=== PATIENT | female | born 1945 | race Caucasian/White ===

== ENCOUNTER 2020-06-05 15:16 | Inpatient (IN) | payer MEDICARE, OTHER ==
[~2020-06-05] VITALS: Ht 167.6 cm; Wt 69.9 kg
[2020-06-05 15:00] VITALS: BP 133/58
[2020-06-05] MEDS ORDERED: BENA20TA9 PO (15:41)
[2020-06-05] MEDS ORDERED: SERT100T PO (15:41)
[2020-06-05] MEDS ORDERED: ZOLP5TAB2 PO (15:41)
[2020-06-05] MEDS ORDERED: ALPR0.5T8 PO (15:41)
[2020-06-05] MEDS ORDERED: ONDA-104 PO (15:41)
[2020-06-05] MEDS ORDERED: OXYC-133 PO (15:41)
[2020-06-05] MEDS ORDERED: SIMV-49 PO (15:41)
--- NOTE | 2020-06-05 16:30 | NUR ---
Patient is medically cleared by Dr Villanueva for admission to [facility]. Patient is now waiting for admitting papers from ER registartion staff Rosa.
[2020-06-05] MEDS ORDERED: ONDANSETRON HCL 4 MG TABLET PO PRN (16:45)
[2020-06-05] MEDS ORDERED: ALPRAZOLAM 0.5 MG TABLET PO PRN (16:45)
[2020-06-05] MEDS ORDERED: OLANZAPINE 10 MG VIAL IM ONE (17:15)
--- NOTE | 2020-06-05 17:25 | NUR ---
Received patient from Ed via wheelchair. Introduced unit and admission process. Patient asked for phone to call boyfriend. Patient stated she wanted to talk to the boyfriend and wanted to see him. Patient called boyfriend and became agitated when they stopped talking. patient stated wanting to be transferred to [facility] and wanted to know why she was transferred here to the hospital and "is being isolated." Staff explained that she is not being isolated and that she is on a 5150 hold. patient started raising voice and started kicking nursing station door. When asked about the medicaitons she has, she started yelling and cursing. Staff tried advisement and orient patient to unit and process. Patient refused and not cooperative. Patient became verbally abusive to staff and used racial slur. Called Dr. Shah for orders. Dr. Shah ordered Zyprexa 10mg IM one time dose. Order carried out. Patient tolerated well. Will continue to monitor.
[2020-06-05] MEDS ORDERED: LORAZEPAM 0.5 MG TABLET PO PRN (17:45)
[2020-06-05] MEDS ORDERED: ZOLPIDEM 5 MG TABLET PO PRN (17:45)
[2020-06-05] MEDS ORDERED: ACETAMINOPHEN 325 MG TABLET PO PRN (17:45)
[2020-06-05] MEDS ORDERED: BLOOD SUGAR DIAGNOSTIC 1 EACH STRIP VI ONE (17:45)
[2020-06-05] MEDS ORDERED: SIMVASTATIN 40 MG TABLET PO SCH (18:00)
[2020-06-05 20:14] VITALS: BP 160/58
[2020-06-05] MEDS: OXYCODONE/APAP 5-325 MG TABLET PO PRN (23:32)
--- NOTE | 2020-06-06 05:06 | NUR ---
RECEIVED PATIENT IN BED, ALERT ORIENTED, COMPLAIN OF GEN BODY PAIN, MEDICATED FOR PAIN ORDER. PATIENT HAS EPISODE OF AGITATION, DEMANDING HER EYE DROP, AND WANTING HER EYE DROP AT BED SIDE. EXPLAINED TO PATIENT THAT NO MEDICATION ALLOWED AT BEDSIDE, BUT CONTINUE TO INSIST AND GETS AGITATED, WILL CONT TO MONITOR.
[2020-06-06 07:19] LABS: BILIRUBIN,TOTAL 0.4 mg/dL (0.2-1.0); CREATININE 1.3 mg/dL (0.6-1.3); POTASSIUM 4.2 mmol/L (3.5-5.1); TOTAL PROTEIN, SERUM 6.6 g/dL (6.4-8.2)
[2020-06-06 07:30] VITALS: BP 99/37
[2020-06-06] MEDS ORDERED: BENAZEPRIL HCL 20 MG TABLET PO SCH (09:00)
[2020-06-06] MEDS: BENAZEPRIL HCL 10 MG TABLET PO SCH (09:00)
--- NOTE | 2020-06-06 09:00 | NUR ---
Alert, oriented x 4. Participated with PT. Complained of right hip pain. MD aware with order for x ray. Calm and compliant with taking medications
[2020-06-06] MEDS ORDERED: LORAZEPAM 0.5 MG TABLET PO PRN (09:30)
[2020-06-06] MEDS: GABAPENTIN 100 MG CAPSULE PO SCH ×3 (09:46→16:49)
--- NOTE | 2020-06-06 10:13 | NUR ---
SW Initial Discharge Plan: Patient currently resides with roommate Randa Soriano, [place] [address] ([phone]). Patient would want to return back home upon discharge. Patient stated her significant other is involved in care ([phone]). This SW contacted patient's significant other Maldonado ([phone]) to discuss treatment plan and discharge plan, however, he was unavailable. This SW will work with the MD, family, and treatment team to help coordinate discharge plan.
--- NOTE | 2020-06-06 10:13 | NUR ---
SW Family Contact: This SW contacted patient's significant other Maldonado ([phone]) to discuss treatment plan and discharge plan, however, he was unavailable.
--- NOTE | 2020-06-06 10:14 | NUR ---
Firearms Report: Burglar Alarm Operator completed and submitted a [employer] firearms report for 5150 grave disability certification. A copy of report has been placed in patient chart.
--- NOTE | 2020-06-06 10:15 | NUR ---
SW Substance Abuse Intervention: Patient was provided with a brief substance abuse intervention and referred to [facility] ([phone]), [facility] ([phone]), and [facility] ([phone]). 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
[2020-06-06] MEDS: POLYVINYL ALCOHOL OPHT DROPS 15 ML BOTTLE EACHEYE PRN (12:41)
--- NOTE | 2020-06-06 13:00 | NUR ---
Participated with activities. With fair appetite. Report of dry eyes, MD aware with eye drops applied as ordered.
--- NOTE | 2020-06-06 14:38 | NUR ---
SW Family Contact: This SW spoke with patient's boyfriend Maldonado ([phone]) and he stated he is concerned about patient's eye situation. This SW stated that she will transfer this concern to her nurse. This SW notified patient's RN Arabella who stated she is aware of this condition and will be giving patient her eye drops. This SW discussed treatment plan and discharge plan with boyfriend Maldonado.
--- NOTE | 2020-06-06 14:39 | NUR ---
SW Friend Contact: This SW spoke with patient's roommate Randa ([phone]) who stated that patient would have to be stable in order to return back home.
--- NOTE | 2020-06-06 15:18 | NUR ---
Individual Therapy: diversified crops farmworker met with patient for brief counseling and assessed for level of suicidality. diversified crops farmworker assessed for suicidal thoughts, patient denied suicidal thoughts. Patient expressed "I did not mean to kill myself". She reported "I have done this in the past to get my boyfriends attention". She stated that she "feels better". Patient appears to be minimizing her symptoms. Patient was not understanding of her current situation. SW actively listened and provided education.
[2020-06-06 16:00] VITALS: BP 131/67
[2020-06-06] MEDS: DIVALPROEX 250 MG TABLET.DR PO SCH (16:49)
[2020-06-06] MEDS: SIMVASTATIN 40 MG TABLET PO SCH (20:28)
[2020-06-06] MEDS: SERTRALINE HCL 100 MG TABLET PO SCH (20:28)
[2020-06-06] MEDS: OXYCODONE/APAP 5-325 MG TABLET PO PRN (20:28)
[2020-06-06 20:32] VITALS: BP 144/69
[2020-06-07] MEDS: LORAZEPAM 1 MG TABLET PO PRN (00:15)
--- NOTE | 2020-06-07 05:46 | NUR ---
Patient received in her room. Awake and alert. Hyperverbal and tangential speech noted. Patient medication compliant, calm and cooperative. Quill Buncher And Sorter was able to engage in meaningful conversation and patient adamantly denies thoughts of SI. and minimized the events that brought her to the hospital. Total sleep hours were 5.45. Patient was up and down during the night. No acute distress or pain. Continuing to monitor patient for safety and behavioral escalation.
[2020-06-07] MEDS: POLYVINYL ALCOHOL OPHT DROPS 15 ML BOTTLE EACHEYE PRN ×2 (06:28→20:17)
[2020-06-07 07:30] VITALS: BP 140/57
[2020-06-07] MEDS: BENAZEPRIL HCL 10 MG TABLET PO SCH (08:46)
[2020-06-07] MEDS: GABAPENTIN 100 MG CAPSULE PO SCH ×3 (08:46→16:15)
[2020-06-07] MEDS: DIVALPROEX 250 MG TABLET.DR PO SCH ×2 (08:46→16:15)
[2020-06-07 16:00] VITALS: BP 110/47
--- NOTE | 2020-06-07 17:56 | NUR ---
Received patient in her room, awake and alert, patient is cooperative upon assessment , all due meds give per MD order, denies thoughts of SI. All needs met promptly. No s/sx of distress. Denies of any pain.
[2020-06-07 19:53] VITALS: BP 111/45
[2020-06-07] MEDS: SIMVASTATIN 40 MG TABLET PO SCH (20:17)
[2020-06-07] MEDS: OXYCODONE/APAP 5-325 MG TABLET PO PRN (20:18)
[2020-06-07] MEDS: SERTRALINE HCL 100 MG TABLET PO SCH (20:19)
--- NOTE | 2020-06-08 06:07 | NUR ---
Patient slept 7.15 hours last night. No issues. Continuing with plan of care.
[2020-06-08 07:30] VITALS: BP 123/74
--- NOTE | 2020-06-08 07:30 | NUR ---
Patient received awake, alert and oriented times 4. No distress noted, pt. is calm and cooperative. Pt. is compliant with medications. Pt. denies any SI/REYES at this time. Safety precautions implemented. Will continue to monitor.
[2020-06-08] MEDS: GABAPENTIN 100 MG CAPSULE PO SCH ×3 (08:35→16:36)
[2020-06-08] MEDS: BENAZEPRIL HCL 10 MG TABLET PO SCH (08:35)
[2020-06-08] MEDS: DIVALPROEX 250 MG TABLET.DR PO SCH ×2 (08:35→16:36)
[2020-06-08] MEDS: POLYVINYL ALCOHOL OPHT DROPS 15 ML BOTTLE EACHEYE PRN ×2 (08:36→18:53)
[2020-06-08 15:33] VITALS: BP 100/53
--- NOTE | 2020-06-08 18:18 | NUR ---
Patient is the TV lounge. No sign of distress noted. Gave all medications as ordered. Patient is compliant with care and medications. Denies SI, REYES. Safety in place. Will endorse to next shift.
[2020-06-08 19:57] VITALS: BP 127/53
[2020-06-08] MEDS: SERTRALINE HCL 100 MG TABLET PO SCH (20:37)
[2020-06-08] MEDS: OXYCODONE/APAP 5-325 MG TABLET PO PRN (20:38)
[2020-06-08] MEDS: SIMVASTATIN 40 MG TABLET PO SCH (20:38)
--- NOTE | 2020-06-09 04:10 | NUR ---
Received patient in the jama last night, standing with other patients and socializing. Deboning Team Leader was able to engage in a meaningful conversation with the patient in which patient denied ever " Having true suicidal intentions". And was minimizing the event that brought her to the hospital. This patient is hyperverbal and has tangential speech. Deboning Team Leader was able to refocus patient on the topic but that only lasted for a few minutes. Patient was having some soreness in her hip and requested a pain pill. There were no behavioral issues during the night and patient seems to be sleeping well. Frequent rounds are being done to ensure a safe environment. Plan to monitor for SI, pain, and to meet needs of the patient as they arise.
[2020-06-09 07:30] VITALS: BP 149/75
[2020-06-09] MEDS: GABAPENTIN 100 MG CAPSULE PO SCH ×3 (09:13→16:20)
[2020-06-09] MEDS: DIVALPROEX 250 MG TABLET.DR PO SCH ×2 (09:13→16:20)
[2020-06-09] MEDS: BENAZEPRIL HCL 10 MG TABLET PO SCH (09:14)
[2020-06-09 15:03] VITALS: BP 156/66
--- NOTE | 2020-06-09 15:29 | NUR ---
Individual Therapy: merchandise worker met with patient for brief counseling and assessed for level of suicidality. merchandise worker assessed for suicidal thoughts, patient denied suicidal thoughts. Patient stated "I do not have any suicidal thoughts and I never did". Patient did not want to talk about this topic. SW unable to conduct therapy at this time.
[2020-06-09] MEDS: LORAZEPAM 1 MG TABLET PO PRN (19:24)
[2020-06-09 20:09] VITALS: BP 146/72
[2020-06-09] MEDS: SERTRALINE HCL 100 MG TABLET PO SCH (21:11)
[2020-06-09] MEDS: SIMVASTATIN 40 MG TABLET PO SCH (21:12)
[2020-06-09] MEDS: OXYCODONE/APAP 5-325 MG TABLET PO PRN (21:47)
[2020-06-10 07:30] VITALS: BP 115/50
[2020-06-10] MEDS: BENAZEPRIL HCL 10 MG TABLET PO SCH (08:19)
[2020-06-10] MEDS: GABAPENTIN 100 MG CAPSULE PO SCH ×3 (08:19→16:24)
[2020-06-10] MEDS: DIVALPROEX 250 MG TABLET.DR PO SCH ×2 (08:19→16:24)
--- NOTE | 2020-06-10 08:40 | NUR ---
[facility] Coordination of Care: Patient will follow up with (Apple Peeler Operator) Dr. Allison at [facility] [place] located [address] [place] [address] - [address] [place] [address]; ([phone]) on June 16 at 2PM. Primary doctor will monitor and provide psychotropic medications. Bus Van Driver Suresh at patients primary doctor office will refer patient to a psychiatrist.
--- NOTE | 2020-06-10 09:04 | NUR ---
SW Friend Contact: This SW spoke with patient's roommate Randa ([phone]) and stated patient will be discharged 06/11. She is agreeable with this.
[2020-06-10] MEDS: POLYVINYL ALCOHOL OPHT DROPS 15 ML BOTTLE EACHEYE PRN ×2 (09:05→14:12)
--- NOTE | 2020-06-10 09:05 | NUR ---
SW Significant Other Contact: This SW spoke with patient's significant other Maldonado ([phone]) and stated patient will be discharged on 06/11 and he stated he will coal picker patient at 11AM on 06/11.
--- NOTE | 2020-06-10 09:15 | NUR ---
PATIENT SEEN AND EXAMINED BY DR HIGUERA WITH D/C PLANNING TOMORROW PATIENT AWARE AND IS EXCITED TO GO HOME TOMORROW.
--- NOTE | 2020-06-10 13:10 | NUR ---
Individual Therapy: general production worker met with patient for brief counseling and assessed for level of suicidality. general production worker assessed for suicidal thoughts, patient denied suicidal thoughts. She stated "I do not have any thoughts of hurting myself". Patient stated she is "happy and wants to go back home". SW actively listened and provided emotional support.
[2020-06-10 15:23] VITALS: BP 101/48
--- NOTE | 2020-06-10 18:00 | NUR ---
SITTING IN THE D/ROOM WATCHING THE TV AND SOCIALISING WITH OTHER PATIENTS IN [employer].D/C PLANNING FOR TOMORROW
[2020-06-10 20:00] VITALS: BP 142/64
[2020-06-10] MEDS: SERTRALINE HCL 100 MG TABLET PO SCH (20:09)
[2020-06-10] MEDS: SIMVASTATIN 40 MG TABLET PO SCH (20:09)
[2020-06-10] MEDS: OXYCODONE/APAP 5-325 MG TABLET PO PRN (20:10)
--- NOTE | 2020-06-10 21:19 | NUR ---
Received patient in dinning room engaging in conversation with other patients. Patient AAOx3, goal oriented to be discharged, engaged in meaningful conversation, and denies SI/HI. Patient complains of pain in the right hip, will administer pain medication per orders. Q15 min safety checks in place and will continue to monitor for safety.
[2020-06-10] MEDS: LORAZEPAM 1 MG TABLET PO PRN (21:37)
[2020-06-11 07:30] VITALS: BP 121/59
[2020-06-11 08:01] VITALS: BP 121/59
[2020-06-11] MEDS: BENAZEPRIL HCL 10 MG TABLET PO SCH (08:01)
[2020-06-11] MEDS: DIVALPROEX 250 MG TABLET.DR PO SCH (08:01)
[2020-06-11] MEDS: GABAPENTIN 100 MG CAPSULE PO SCH (08:01)
--- NOTE | 2020-06-11 08:07 | NUR ---
Discharge Note: Patient [place] discharged [place] [address] [place] [address]; ([phone]). Patients significant other Maldonado ([phone]) will picker tender patient at 11AM. Patients roommate Randa is aware of discharge. Patient appears alert and oriented x4 and wants to go back home. Patient denies visual/auditory hallucination. Patient denies suicidal or homicidal ideation. Patient will follow up with (Mechanical Expert) Dr. Allison at [facility] located [address] [place] [address] - [address] [place] [address]; ([phone]) on June 16 at 2PM. Primary doctor will monitor and provide psychotropic medications. Information Security Architect Suresh at patients primary doctor office will refer patient to a psychiatrist. Patient was provided referrals to the following substance abuse programs for benzodiazepines addiction: [facility] ([phone]); [facility] [address] [place] [address] ([phone]); [facility] [address] [facility] [place] [address] ([phone]); [facility] ([phone]); [facility] ([phone]); [facility] ([phone]); [facility] ([phone]). Patient presented with euthymic mood and congruent affect.
--- NOTE | 2020-06-11 11:43 | NUR ---
PATIENT DISCHARGED HOME WITH HER SIGNIFICANT OTHER, ESCORTED TO THE CAR SAFELY, PATIENT IS ALERT, ORIENTED X4, NO SOB, RESP EVEN NONLABORED, SKIN WARM AND DRY TO TOUCH, AMBULATORY, AND SELF CARE, BELONGINGS ARE ACCOUNTED AND SIGNED, SENT WITH PATIENT HOME, PATIENT HOME MEDS GIVEN TO PATIENT, HER PURSE FROM THE SAFE GIVEN TO PATIENT, PRESCRIPTION GIVEN TO PATIENT, TEACHING PROVIDED TO PATIENT ABOUT HER PRESCRIPTION MEDS, PATIENT VERBALIZED UNDERSTANDING OF IT, PATIENT MADE AWARE ABOUT HER FOLLOW UP APT AND PATIENT STATED UNDERSTANDING OF IT. WRITTEN INSTRUCTIONS ARE GIVEN TO PATIENT WELL.
== END 2020-06-11 12:38 | disposition home or self-care (01) | DRG 885 ==
LOC: ER 15:16 → GPS 16:28
PROVIDERS: ADMIT Psychiatry & Neurology Psychiatry; ATTEND Internal Medicine
DX: F31.30 Bipolar disorder, current episode depressed, mild or moderate severity, unspecified (principal); N17.0 Acute kidney failure with tubular necrosis; F23 Brief psychotic disorder; Z85.6 Personal history of leukemia; G89.4 Chronic pain syndrome; E78.5 Hyperlipidemia, unspecified; F41.9 Anxiety disorder, unspecified; Z73.6 Limitation of activities due to disability; T42.4X2D Poisoning by benzodiazepines, intentional self-harm, subsequent encounter; M62.81 Muscle weakness (generalized); Z79.891 Long term (current) use of opiate analgesic
CPT/HCPCS: 36415; 73501; 80164; 84443; 93005; A4663; J2358; J3490